=== PATIENT | male | born 1980 | race Caucasian/White ===

== ENCOUNTER 2017-11-13 14:04 | Emergency (ER) | payer OTHER ==
[2017-11-13] MEDS ORDERED: Ketorolac 30 MG/ML SDV IM ONE (14:37)
[2017-11-13] MEDS ORDERED: Alum Hydroxide/Mag Hydroxide 15 ML, Lidocaine 2% 15 ML PO ONE ×2 (14:39)
--- NOTE | 2017-11-13 14:45 | EDM.PDOC ---
ED HPI GENERAL MEDICAL PROBLEM - General Chief Complaint: Chest Pain Stated Complaint: CHEST PAIN Time Seen by Provider: 11/13/17 14:25 Source of Information: Reports: Patient History Limitations: Reports: No Limitations - History of Present Illness INITIAL COMMENTS - FREE TEXT/NARRATIVE: Dar comes to [facility] ED with a 3 day hx of lower retrosternal chest pain. Pain is intermittent, nonpositional, and nonradiating. There is no reported SOB, heartburn, gas or belching, and no interventions have been tried. More recently today he is also experiencing some pain affecting the medial aspect of the L arm , elbow and forearm to the wrist. Pain is lancinating at times, nonpositional, and there is no reported numbness, weakness or tingling of the digits. The L hand does have a cold sensation at times. There is no injury hx. He typically sits at a desk with a keyboard. ED ROS GENERAL - Review of Systems Review Of Systems: See Below Constitutional: Reports: No Symptoms HEENT: Reports: No Symptoms Respiratory: Reports: No Symptoms Cardiovascular: Reports: Chest Pain Endocrine: Reports: No Symptoms GI/Abdominal: Reports: No Symptoms : Reports: No Symptoms Musculoskeletal: Reports: Arm Pain (L medial arm, elbow and forearm to the wrist ) Skin: Reports: No Symptoms Neurological: Reports: Other (cool sensation in L hand) Psychiatric: Reports: Other (remote hx of atypical chest pain about 5 years ago , work up negative) Hematologic/Lymphatic: Reports: No Symptoms Immunologic: Reports: No Symptoms ED EXAM, GENERAL - Physical Exam Exam: See Below Exam Limited By: No Limitations General Appearance: Alert, WD/WN, No Apparent Distress, Obese Eye Exam: Bilateral Eye: EOMI, Normal Inspection, PERRL Ears: Normal External Exam Nose: Normal Inspection Throat/Mouth: Normal Inspection, Normal Teeth, Normal Gums, Normal Oropharynx, Normal Voice Head: Normocephalic Neck: Normal Inspection, Supple, Non-Tender, Full Range of Motion Respiratory/Chest: No Respiratory Distress, Lungs Clear, Normal Breath Sounds, No Accessory Muscle Use, Chest Non-Tender Cardiovascular: Normal Peripheral Pulses, Regular Rate, Rhythm, No Edema, No Gallop, No JVD, No Murmur, No Rub GI/Abdominal: Normal Bowel Sounds, Soft, Non-Tender, No Organomegaly, No Distention, No Mass (Male) Exam: Deferred Rectal (Males) Exam: Deferred Back Exam: Normal Inspection, Full Range of Motion Extremities: Normal Inspection, Normal Range of Motion, Other (mild tenderness of medial L arm, elbow and forearm; tinels neg at elbow, no joint effusion, CMS intact) Neurological: Alert, Oriented, CN II-XII Intact, Normal Cognition, No Motor/ Sensory Deficits Psychiatric: Normal Affect, Normal Mood Skin Exam: Warm, Dry, Intact, Normal Color, No Rash Lymphatic: No Adenopathy Course - Vital Signs Text/Narrative:: Dar was assessed at the [facility] ED, and administered Toradol 30 mg IM and a GI Cocktail for relief of sxs. His retrosternal pains were improved, and his L arm and forearm sxs were also improved. The ekg and chest x rays were WNL, CBC normal, mild elevation of se Cr on BMP, and the Troponin I was <0.017. GERD is suspected. L medial arm and forearm pain is suspected to be musculoskeletal in origin. - Orders/Labs/Meds Orders: Active Orders 24 hr Category Date Time Status Chest 1V Frontal [CR] Stat Exams 11/13/17 14:36 Taken EKG 12 Lead [EK] Routine Ther 11/13/17 14:36 Ordered Labs: Laboratory Tests 11/13/17 11/13/17 11/13/17 Range/Units 14:55 14:55 14:55 WBC 6.8 (4.5-12.0) X10-3/uL RBC 5.34 (4.30-5.75) x10(6)uL Hgb 16.1 H (11.5-15.5) g/dL Hct 47.6 (30.0-51.3) % MCV 89.2 (80-96) fL MCH 30.2 (27.7-33.6) pg MCHC 33.9 (32.2-35.4) g/dL RDW 12.4 (11.5-15.5) % Plt Count 214 (125-369) X10(3)uL MPV 8.7 (7.4-10.4) fL Neut % (Auto) 78.6 (46-82) % Lymph % (Auto) 15.6 (13-37) % Stoddard % (Auto) 3.3 L (4-12) % Eos % (Auto) 1 (1.0-5.0) % Baso % (Auto) 2 (0-2) % Neut # (Auto) 5.4 (1.6-8.3) # Lymph # (Auto) 1.1 (0.6-5.0) # [place]ard # (Auto) 0.2 (0.0-1.3) # Eos # (Auto) 0.0 (0.0-0.8) # Baso # (Auto) 0.1 (0.0-0.2) # Sodium 139 (135-145) mmol/L Potassium 3.7 (3.5-5.3) mmol/L Chloride 103 (100-110) mmol/L Carbon Dioxide 33 H (21-32) mmol/L BUN 12 (7-18) mg/dL Creatinine 1.5 H (0.70-1.30) mg/dL Est Cr Clr Drug Dosing TNP Estimated GFR (MDRD) 53 L (>60) BUN/Creatinine Ratio 8.0 L (9-20) Glucose 95 (80-116) mg/dL Calcium 8.9 (8.6-10.2) mg/dL Troponin I < 0.017 L (<0.017-0.056) ng/mL Meds: Medications Discontinued Medications Generic Name Dose Route Start Last Admin Trade Name Freq PRN Reason Stop Dose Admin Al Hydroxide/Mg Hydroxide 15 0 ml 11/13/17 14:39 11/13/17 14:45 ml/ Lidocaine HCl 15 ml PO 11/13/17 14:40 30 ml ONETIME ONE Administration Ketorolac Tromethamine 30 mg 11/13/17 14:37 11/13/17 14:45 Toradol IM 11/13/17 14:38 30 mg ONETIME ONE Administration Departure - Departure Time of Disposition: 15:46 Disposition: Home, Self-Care 01 Condition: Good Clinical Impression: Atypical chest pain, Left upper limb pain - Discharge Information *PRESCRIPTION DRUG MONITORING PROGRAM REVIEWED*: Not Applicable *COPY OF PRESCRIPTION DRUG MONITORING REPORT IN PATIENT JARRET: Not Applicable Forms: ED Department Discharge - Problem List & Annotations (1) Atypical chest pain SNOMED Code(s): 578854716 Code(s): R07.89 - OTHER CHEST PAIN Status: Acute Current Visit: Yes Annotation/Comment:: I suggested a PPI such as Prilosec 20 mg once or twice daily for up to 2 weeks, and a visit with PCP if sxs do not resolve. (2) Left upper limb pain SNOMED Code(s): 723363150 Code(s): M79.602 - PAIN IN LEFT ARM Status: Acute Current Visit: Yes Annotation/Comment:: I suggested Tylenol for sxs relief. - Problem List Review Problem List Initiated/Reviewed/Updated: Yes - My Orders Last 24 Hours: My Active Orders 11/13/17 14:36 Chest 1V Frontal [CR] Stat EKG 12 Lead [EK] Routine - Assessment/Plan Last 24 Hours: My Active Orders 11/13/17 14:36 Chest 1V Frontal [CR] Stat EKG 12 Lead [EK] Routine Plan: Follow up with PCP if sxs persist.
--- NOTE | 2017-11-16 13:06 | CR ---
INDICATION: Atypical chest pain. CHEST, AP PORTABLE VIEW: FINDINGS: No comparison imaging. The lungs and pleural spaces are clear. The cardiac and mediastinal contours look normal. There is a mild scoliosis deformity of the thoracic spine curved convex right. Bony thorax otherwise appears to be intact. IMPRESSION: No acute abnormality is shown. MTDD
== END 2017-11-13 16:05 | disposition home or self-care (01) ==
LOC: FB.ED 14:04
DX: R07.89 Other chest pain (principal); M79.602 Pain in left arm
CPT/HCPCS: 36415; 71045; 80048; 84484; 85025; 93005; 96372; 99285; A9270-GY; J1885